=== PATIENT | male | born 1950 | race Caucasian/White ===

== ENCOUNTER 2019-02-26 16:27 | Observation (INO) | payer OTHER ==
[~2019-02-26] VITALS: Ht 177.8 cm; Wt 111.1 kg
[~2019-02-26 16:27] MED LIST: APAP/HYDROCODON1 T13 PO; CAT0.1 PO; LEVAQUIN750 MG PO; MES60 PO; NOR10 PO; PANTOPRAZOLE SO40 M1 PO; V10 PO; ZANAFLEX4 MG PO; ZOC20 PO
--- NOTE | 2019-02-26 17:16 | NUR ---
RECEIVED PATIENT FROM TRIAGE, PATIENT AMBULATED TO ROOM 12. PATIENT C/O CHEST TIGHTNESS X 1 (CONSTANT). PATIENT IS ALERT, AWAKE, ORIENTED X 4 (NAME, CONDITION, DATE AND LOCATION). EYES - EDUARDO, WEARS EYE GLASSES. MUCUS - PINK. SR ON MONITOR AT 73, HR- REGULAR. LUNGS - CTA. BS PRESENT X 4 QUADRANTS. PATIENT STATES "I HAVE DIARRHEA X 1 WEEK NOW." B/L UPPER EXT PULSES PALPABLE. 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 PEDAL PUSH - EQUAL, STRONG. B/L LOWER EXT PULSES PALPABLE. RIGHT LOWER EXT EDEMA+[address] OROZCO AT BEDSIDE AT THIS TIME. WILL CONTINUE TO MONITOR//APR RN
--- NOTE | 2019-02-26 17:46 | NUR ---
CXR DONE AT BEDSIDE.//FEB RN
[2019-02-26 17:59] LABS: BASOPHIL % 0.4 % (0-2); PLATELET COUNT 157 x10^3mcL (130-400); RED CELL DISTRIBUTION WIDTH 13.8 % (11.5-14.5)
[2019-02-26 18:02] LABS: CALCIUM 8.8 mg/dL (8.5-10.1); CARBON DIOXIDE 24.9 mmol/L (21-32); CHLORIDE SERUM 106 mmol/L (98-107); CREATININE SERUM 0.9 mg/dL (0.7-1.3); GFR1 > 60 mL/min; GLUCOSE SERUM 67 mg/dL (74-106); SODIUM SERUM 140 mmol/L (136-145)
[2019-02-26 18:04] LABS: ALKALINE PHOSPHATASE 97 U/L (46-116); ALT/SGPT 42 U/L (16-63); AST/SGOT 26 U/L (15-37); TOTAL PROTEIN, SERUM 7.4 g/dL (6.4-8.2)
--- NOTE | 2019-02-26 19:21 | NUR ---
PATIENT AMBULATED TO THE BATHROOM. RETURN TO THE ROOM. VITAL SIGNS WAS DONE. BLOOD PRESSURE IS HIGH. PATOENT DID MOT TAKE HID BLOOD PRESSURE MEDICATION.
--- NOTE | 2019-02-26 19:50 | NUR ---
PATIENT REQUESTED TO [facility] HOME BP MEDICATION AFMITING MD ON SAME. REPORT GIVEN TO SHANDA. PATIENT WILL BE TRANSPORTED TO ROOM 205B.
[2019-02-26 20:19] LABS: CHOLESTEROL/HDL RATIO 2.9
--- NOTE | 2019-02-26 20:25 | NUR ---
RECEIVED PT FROM ED [facility]IA [employer], CAME IN DUE TO CHEST PAIN. AAOX4. DENIES HEADACHE/DIZZINESS. NO SOB NOTED, LUNG SOUNDS CTA. C/O 4/10 MID CHEST PAIN RADIATING TO THE BACK DESCRIBED TIGHTNESS, SR ON THE MONITOR. DENIES ABDOMINAL DISCOMFORT. BOWEL SOUNDS ACTIVE. VOIDS. IV SITE ON THE RAC GAUGE 20 IS PATENT AND INTACT. SIDE RAILS UPX2. CALL LIGHT ON REACH. AT BEDSIDE. ENDORSED TO PRIMARY NURSE TRACI FOR CONTINUITY OF CARE
[2019-02-26 20:38] VITALS: BP 179/86
[2019-02-26 20:43] VITALS: Ht 177.8 cm; Wt 111.1 kg
[2019-02-27] VITALS: BP 138/82
--- NOTE | 2019-02-27 00:01 | NUR ---
BP RECHECKED @ 138/82 MMHG,HR 55.C/O INSOMIA. OFFERED SLEEPING PILL BUT RATHER GET MILK INSTEAD.RESTFUL ENVIRONMENT PROVIDED.PT ON CONTINUED 02 @ 2L/MIN VIA N/C.NOTICED GETTING SOB WHEN TALKING.O2 SAT @ 95%.WILL CONTINUE TO MONITOR.ID 4/10 TO CHEST DISCOMFORT.HOB KEPT ELEVATED.WILL CONTINUE TO MONITOR.
--- NOTE | 2019-02-27 04:38 | NUR ---
PT SLEPT WITH INTERVAL.MEDICATED WITH NORCO 7.5 MG PO X2 FOR BACK/CHESTPAIN WITH SOME RELIEF.AMBULATED TO BR AND TOLERATED WELL.O2 @ 2L/MIN VIA N/C.IN NO DISTRESS.WILL CONTINUE TO MONITOR.
[2019-02-27 05:21] LABS: BASOPHIL % 0.4 % (0-2); PLATELET COUNT 134 x10^3mcL (130-400); RED CELL DISTRIBUTION WIDTH 13.5 % (11.5-14.5)
[2019-02-27 05:32] LABS: CALCIUM 8.4 mg/dL (8.5-10.1); CARBON DIOXIDE 28.4 mmol/L (21-32); CHLORIDE SERUM 105 mmol/L (98-107); CREATININE SERUM 0.8 mg/dL (0.7-1.3); GFR1 > 60 mL/min; GLUCOSE SERUM 88 mg/dL (74-106); POTASSIUM SERUM 3.5 mmol/L (3.5-5.1); SODIUM SERUM 141 mmol/L (136-145)
[2019-02-27 05:33] VITALS: BP 154/85
--- NOTE | 2019-02-27 05:34 | NUR ---
LATEST BP CHECKED @ 154/85 MMHG,HR 70.WILL ENDORSE TO MA NURSE.
[2019-02-27 07:08] VITALS: BP 150/89
--- NOTE | 2019-02-27 08:00 | NUR ---
SHIFT ASSESSMENT DONE. PATIENT A/A/OX4. TELE#7, SR = HR 62. C/O MID CHEST PRESSURE/TIGHTNESS ON 01/11. NO RADIATION. REFUSED PAIN MEDS NOW. CONTINUE MONITOR. NO RESP DISTRESS ON RA. O2 SAT 98%. TOLERATED CARDIAC DIET BREAKFAST. NO N/V. IVHL'D TO RAC. SITE CLEAN. AMBULATORY. CALL LIGHT IN REACH.
[2019-02-27 12:00] VITALS: BP 139/82
[2019-02-27 13:01] VITALS: BP 139/82
--- NOTE | 2019-02-27 13:07 | NUR ---
DR. DAS SAW PATIENT. OK TO D/C HOME TODAY. PATIENT'S B/P = 139/83; DR. DAS AGREE TO HOLD CLONIDINE 0.3 MG PO AT 1300.
--- NOTE | 2019-02-27 13:36 | NUR ---
DENIED CHEST PAIN. D/C TO HOME PER ORDER. INSTRUCTION GIVEN. IV D/C'D. OVER NEEDLE CATHETER INTACT. CONDITION STABLE.
== END 2019-02-27 13:39 | disposition home or self-care (01) | DRG 313 ==
LOC: ED 16:27 → DU 19:08
PROVIDERS: Emergency Medicine; ADMIT Internal Medicine Pulmonary Disease
DX: R07.89 Other chest pain (principal); I10 Essential (primary) hypertension; E78.5 Hyperlipidemia, unspecified; G47.30 Sleep apnea, unspecified; R19.7 Diarrhea, unspecified
CPT/HCPCS: G0378; J1644; J7030; Q0092